=== PATIENT | female | born 1950 | race Hispanic/Latino ===

== ENCOUNTER 2020-08-29 12:43 | Emergency (ER) | payer SELFPAY ==
--- NOTE | 2020-08-29 13:03 | Event Note ---
ED Screening Note ED Screening Note: ENT SENT PT TO MD FOR JAUNDICE SHE COULD NOT REACH HER PCP SO CAME HERE SAW ENT ON SEE MED LIST- ON STATIN COPD DM HYPOTHYROID HTN HLD... TACHYCARDIA DENIES ETOH This initial assessment/diagnostic orders/clinical plan/treatment(s) is/are subject to change based on patients health status, clinical progression and re- assessment by fellow clinical providers in the ED. Further treatment and workup at subsequent clinical providers discretion. Patient/guardian urged not to elope from the ED as their condition may be serious if not clinically assessed and managed. Initial orders include: LABS
[2020-08-29 13:53] LABS: Bacteria,Urine 1+ /HPF (Negative); Bilirubin,Urine NEG (Negative); Blood,Urine NEG (Negative); Color,Urine Yellow (Yellow); Protein,Urine <15 mg/dL mg/dL (Negative); Urobilinogen,Urine < 2.0 mg/dL (<2.0)
[2020-08-29] MEDS ORDERED: SODIUM CHLORIDE 0.9% 1000 ML 1,000 ML ONE (14:12)
[2020-08-29 14:13] LABS: Hematocrit 37.1 % (30.3-42.9); Hemoglobin 12.1 gm/dl (10.1-14.3); Mean Corpuscular HGB Conc 33 % (30-34); Mean Corpuscular Volume 88 fl (79-97); Platelet Count 612 K/mm3 (140-440); Red Blood Count 4.21 M/mm3 (3.65-5.03); Red Cell Distribution Width 15.9 % (13.2-15.2)
[2020-08-29 14:30] LABS: Mucus,Urine FEW /HPF
[2020-08-29 14:35] LABS: Bilirubin,Direct < 0.2 mg/dL (0-0.2)
[2020-08-29 14:36] LABS: Alanine Aminotransferase 59 units/L (7-56); Albumin 4.4 g/dL (3.9-5); BUN/Creatinine Ratio 20; Blood Urea Nitrogen 16 mg/dL (7-17); Calcium 9.3 mg/dL (8.4-10.2); Hemolysis Index 4
--- NOTE | 2020-08-29 14:39 | Emergency Department Report ---
ED General Adult HPI - General Chief complaint: Medical Clearance Stated complaint: THROAT/MOUTH Time Seen by Provider: 08/29/20 12:45 Source: patient Mode of arrival: Ambulatory Limitations: No Limitations - History of Present Illness Initial comments: 69-year-old female with a past medical history of type 2 diabetes, COPD, rheumatoid arthritis, GERD, and thyroid disease presents to the ER today with complaints of being jaundiced. Patient states that she saw her ENT 3 days ago because since August 13 she has been having sore throat and she has noticed white patches in her throat and mouth. She states that when she went to the ENT, he examined her throat as well as her sinuses and could not find anything wrong but he did was concerned that she appeared jaundiced to him and recommended that she goes to the hospital. Patient states that she had not noticed herself to be jaundiced, and she did not go to the hospital the same day that she was instructed to by the ENT. She states that she came today because she felt like the white patchy areas in her throat and mouth were getting more yellow and worse even though she states that today they seem to be better. She states that she is not having any difficulty swallowing or breathing, she is not drooling or any difficulty opening her mouth. She has no abdominal pain, no vomiting, diarrhea or any bowel changes. She denies alcohol abuse, acetaminophen use, or any history of liver disease in the past. She reports no other symptoms at this time MD Complaint: Sent by ENT for Jaundice -: days(s) (3) - Related Data Allergies Allergy/AdvReac Type Severity Reaction Status Date / Time morphine Allergy Hives Verified 08/29/20 12:54 ED Review of Systems ROS: Stated complaint: THROAT/MOUTH Other details as noted in HPI Comment: All other systems reviewed and negative Constitutional: denies: chills, fever Eyes: denies: eye pain, eye discharge, vision change ENT: throat pain. denies: ear pain Respiratory: no symptoms reported Cardiovascular: denies: chest pain, palpitations Endocrine: no symptoms reported Gastrointestinal: denies: abdominal pain, nausea, vomiting, diarrhea, constipation, hematemesis Genitourinary: denies: urgency, dysuria, discharge Musculoskeletal: denies: back pain, joint swelling, arthralgia Skin: rash (In the mouth). denies: lesions Psychiatric: denies: anxiety, depression Hematological/Lymphatic: denies: easy bleeding, easy bruising ED Past Medical Hx - Past Medical History Previous Medical History?: Yes Hx Hypertension: Yes Hx Diabetes: Yes Hx COPD: Yes Additional medical history: RA. hyperthyroidism - Surgical History Additional Surgical History: Total hysterectomy - Social History Smoking Status: Former Smoker Substance Use Type: None ED Physical Exam - General Limitations: No Limitations General appearance: alert, in no apparent distress - Head Head exam: Present: atraumatic, normocephalic, normal inspection - Eye Eye exam: Present: normal appearance, PERRL, EOMI Pupils: Present: normal accommodation - ENT ENT exam: Present: normal exam, normal orophraynx, mucous membranes moist - Neck Neck exam: Present: normal inspection, full ROM. Absent: lymphadenopathy - Respiratory Respiratory exam: Present: normal lung sounds bilaterally. Absent: respiratory distress - Cardiovascular Cardiovascular Exam: Present: regular rate, normal rhythm, normal heart sounds - GI/Abdominal GI/Abdominal exam: Present: soft. Absent: distended, tenderness, guarding, rebound - Neurological Exam Neurological exam: Present: alert, oriented X3, CN II-XII intact, normal gait - Psychiatric Psychiatric exam: Present: normal affect, normal mood - Skin Skin exam: Present: intact. Absent: rash ED Course Vital Signs 08/29/20 08/29/20 08/29/20 12:58 15:37 15:43 Temperature 98.6 F Pulse Rate 113 H 93 H Respiratory 16 18 16 Rate Blood Pressure 154/107 Blood Pressure 137/86 [Right] O2 Sat by Pulse 98 96 Oximetry ED Medical Decision Making - Lab Data Result diagrams: 08/29/20 13:20 08/29/20 13:20 - Medical Decision Making 69-year-old female with a past medical history of type 2 diabetes, COPD, rheumatoid arthritis, GERD, and thyroid disease presents to the ER today with complaints of being jaundiced. Patient states that she saw her ENT 3 days ago because since August 13 she has been having sore throat and she has noticed white patches in her throat and mouth. She states that when she went to the ENT, he examined her throat as well as her sinuses and could not find anything wrong but he did was concerned that she appeared jaundiced to him and recommended that she goes to the hospital. Patient states that she had not noti nahid herself to be jaundiced, and she did not go to the hospital the same day that she was instructed to by the ENT. She states that she came today because she felt like the white patchy areas in her throat and mouth were getting more yellow and worse even though she states that today they seem to be better. She states that she is not having any difficulty swallowing or breathing, she is not drooling or any difficulty opening her mouth. She has no abdominal pain, no vomiting, diarrhea or any bowel changes. She denies alcohol abuse, acetaminophen use, or any history of liver disease in the past. She reports no other symptoms at this time 1533: Patient currently resting comfortably. She is not in any acute distress. She is well-appearing and nontoxic. She appears well-hydrated. She is neurologically intact. Repeat vital signs better. Examination of her mouth and throat unremarkable, I do not see any signs of thrush or ulcers or any plaques or any exudates to the tonsils are swollen tonsils or any evidence of peritonsillar abscess or Ravinder's angina. No swelling noted. No dental abscess she is able to control his secretions. Airways intact. No apparent scleral icterus and she overall does not appear jaundiced. She has a soft nontender abdomen. Labs reviewed, CBC shows mild elevation of her platelet count at 612 but otherwise unremarkable. CMP reviewed, her AST is mildly elevated at 54 and ALT is mildly elevated at 59 but otherwise her CMP is unremarkable including normal bilirubin levels. At this time there is no indication for any further work-up, emergent consult or admission at this time. Discussed lab results with patient. Recommend she just followed up with your primary care doctor for continued monitoring of her LFTs and platelet count. Patient expressed understanding of instructions and agree with plan. Patient was stable at time of discharge Critical care attestation.: If time is entered above; I have spent that time in minutes in the direct care of this critically ill patient, excluding procedure time. ED Disposition Clinical Impression: Pharyngitis, Normal peak total bilirubin level, Elevated LFTs Disposition: - TO HOME OR SELFCARE Is pt being admited?: No Does the pt Need Aspirin: No Condition: Stable Instructions: Pharyngitis, [id number] Additional Instructions: I recommend that you follow-up with your primary care doctor for repeat testing of your liver functions, and repeat platelet level. Return to the ER if anything changes or worsens in any way. Referrals: PRIMARY CARE, [Referring] - 3-5 Days Time of Disposition: 15:43
[2020-08-29 15:39] VITALS: BP 137/86
== END 2020-08-29 15:49 | disposition home or self-care (01) ==
LOC: ED 12:43
DX: J02.9 Acute pharyngitis, unspecified (principal); E80.7 Disorder of bilirubin metabolism, unspecified; R94.5 Abnormal results of liver function studies; I10 Essential (primary) hypertension; E11.9 Type 2 diabetes mellitus without complications; J44.9 Chronic obstructive pulmonary disease, unspecified; Z79.899 Other long term (current) drug therapy
CPT/HCPCS: 36415; 80053; 81001; 82247; 82248; 83690; 85027; 99283; J7030